=== PATIENT | male | born 1985 | race African-American/Black ===

== ENCOUNTER 2017-12-11 09:45 | Outpatient (CLI) | payer OTHER ==
--- NOTE | 2017-12-11 21:42 | MRI Report ---
EXAM: RIGHT KNEE MRI WITHOUT CONTRAST EXAM DATE: 12/11/2017 10:39 AM. CLINICAL HISTORY: Chronic right knee pain x years. Patient injured his right knee pitching in basebal l 09/25/2017 with difficulty bending/squatting post. Lateral knee pain worse. Popping. No surgery or ca ncer. COMPARISON: None. TECHNIQUE: Multiplanar, multisequence T1-weighted and fluid-sensitive sequences of the knee without c ontrast. Other: None. FINDINGS: Cruciate ligaments: The anterior and posterior cruciate ligaments appear intact. Medial meniscus: Intact. No tear is identified. Lateral meniscus: Diskoid lateral meniscus. Partial-thickness radial tear at the body anterior horn j unction. Prominent intrasubstance degeneration at the periphery of the body. Collateral ligaments: The medial and fibular collateral ligaments appear intact. Bones and articular surfaces: Slight lateral tracking of the patella. No osteochondral lesions. No si gnificant articular cartilage defects. Extensor mechanism: The patellar tendon and quadriceps insertion appear intact. Chronic irregular oss ification at the tibial patellar tendon insertion with no associated marrow edema. IMPRESSION: 1. Diskoid lateral meniscus with partial-thickness radial tear at the body anterior horn junction. Pr ominent intrasubstance degeneration at the periphery of the body. [facility] MUSCULOSKELETAL RADIOLOGY SECTION Referring Provider Line: [phone] SITE ID: [id number]
== END 2017-12-11 09:46 | disposition home or self-care (01) ==
LOC: DI 09:45
PROVIDERS: ATTEND General Practice
DX: M23.341 Other meniscus derangements, anterior horn of lateral meniscus, right knee (principal); S86.811A Strain of other muscle(s) and tendon(s) at lower leg level, right leg, initial encounter